=== PATIENT | female | born 1960 | race Caucasian/White ===

== ENCOUNTER 2017-01-11 20:42 | Inpatient (IN) | payer OTHER ==
[~2017-01-11] VITALS: Ht 165.1 cm; Wt 91.0 kg
[~2017-01-11 20:42] MED LIST: METH10TA2 PO; OXYC30TA PO
[2017-01-12 00:12] VITALS: Ht 165.1 cm; Wt 91.0 kg
[2017-01-12 00:17] VITALS: BP 129/73; PULSE 68; RESP 20
[2017-01-12] MEDS ORDERED: LYRI100 PO (00:53)
[2017-01-12] MEDS ORDERED: ZOLPIDEM 5 MG TAB PO PRN (01:00)
[2017-01-12] MEDS ORDERED: ACETAMINOPHEN 325 MG TAB PO PRN (01:00)
[2017-01-12] MEDS ORDERED: morphine 2 MG INJ IV PRN ×2 (01:00→03:00)
[2017-01-12] MEDS ORDERED: VANCOMYCIN IV PER PHARMACY XX SCH (01:00)
[2017-01-12 02:00] VITALS: BP 122/67; RESP 20
[2017-01-12] MEDS ORDERED: VANCOMYCIN 1.75 GM in NS 500 ML IVPB ONE (02:00)
[2017-01-12] MEDS: PIPER-TAZO 3.375 GM IV (PMX) 100 ML IVPB SCH ×4 (05:24→23:28)
[2017-01-12 06:27] LABS: ADD SCAN DIFF NO
[2017-01-12 06:29] LABS: BASOPHILS % 0.3 % (0.0-2.0); EOSINOPHILS # 0.1 10^3/ul (0.0-0.5); EOSINOPHILS % 1.7 % (0.0-7.0); HEMATOCRIT 33.8 % (37.0-47.0); HEMOGLOBIN 11.1 g/dl (12.0-16.0); LYMPHOCYTES # 2.3 10^3/ul (0.8-2.9); LYMPHOCYTES % 35.2 % (15.0-51.0); MEAN CORPUSCULAR HEMOGLOBIN 28.6 pg (29.0-33.0); MEAN CORPUSCULAR HGB CONC 32.8 g/dl (32.0-37.0); MEAN CORPUSCULAR VOLUME 87.1 fl (82.0-101.0); MEAN PLATELET VOLUME 11.6 fl (7.4-10.4); MONOCYTE # 0.4 10^3/ul (0.3-0.9); MONOCYTES % 6.1 % (0.0-11.0); NEUTROPHIL # 3.7 10^3/ul (1.6-7.5); NEUTROPHILS % 56.5 % (39.0-77.0); PLATELET COUNT 195 10^3/UL (140-415); RED BLOOD COUNT 3.88 10^6/ul (4.20-5.40); RED CELL DISTRIBUTION WIDTH 13.4 % (11.5-14.5); WHITE BLOOD COUNT 6.6 10^3/ul (4.8-10.8)
[2017-01-12 07:15] LABS: ALBUMIN 3.6 g/dl (3.3-4.9); ALBUMIN/GLOBULIN RATIO 1.38; BILIRUBIN,INDIRECT 0.1 mg/dl (0-1.1); BILIRUBIN,TOTAL 0.1 mg/dl (0.2-1.3); CALCIUM 8.7 mg/dl (8.4-10.2); CREATININE 0.51 mg/dl (0.44-1.00); TOTAL PROTEIN 6.2 g/dl (6.1-8.1)
[2017-01-12 08:07] VITALS: BP 108/58; RESP 18
[2017-01-12] MEDS: oxyCODONE 15 MG TAB PO SCH ×2 (09:04→13:30)
[2017-01-12] MEDS: PREGABALIN 25 MG CAP PO SCH (09:04)
[2017-01-12] MEDS: ENOXAPARIN 40 MG/0.4 ML SYG SC SCH (09:31)
[2017-01-12] MEDS: VANCOMYCIN 1 GM in NS 250 ML IVPB SCH (13:31)
--- NOTE | 2017-01-12 13:36 | HP ---
Date/Time of Note Date/Time of Note DATE: 01/12/17 TIME: 12:15 Assessment/Plan VTE Prophylaxis VTE Prophylaxis Intervention: other Lines/Catheters [facility] Saline Lock Urinary Cath still in place: No Assessment/Plan Assessment/Plan -Cellulitis of left lower extremity -We will also get Doppler left lower extremity to rule out any DVT -Vanco per pharmacy -Zosyn -We will get an ID consult, Dr. Shelton notified -We will get an podiatry consult, Dr. Darlin Lazar notified -Pain control with Roxicodone -Wound care consult -Dietary consult -Elevate left lower extremity all times -Chronic left ankle wound -History of paraplegia -History of back surgery -Status post decub debridement -Status post breast implants-implants have been removed as per patient -Lovenox for DVT prophylax -Protonix for GI Proflex Further plan of care depends on patient's clinical course. Discussed with Dr. Donaldson, staff, patient. HPI/ROS Admit Date/Time Admit Date/Time Jan 11, 2017 at 23:54 Hx of Present Illness The patient Amarilis Durán is a 56-year-old female patient with past medical history of paraplegia,, status post back surgery, decub debridement, status post breast implant is admitted to [facility] patient was seen in [facility] but was transferred to [facility] for insurance issues. Patient was admitted with fever and chills patient reported having an area of erythema and blister on her lateral area of left ankle. Patient also stated that she has a same problem in the past as well. No other complaints were mentioned. During assessment patient is alert and awake, follows commands denies any chest pain, shortness of breath, fever, chills,. Headache, palpitations, focal weakness and numbness, abdominal pain, nausea vomiting. Patient denies any fall or injury. Review of systems-all systems are reviewed and abnormalities mentioned as above. Patient is admitted under Dr. Donaldson on MedSur floor. Vanco, Zosyn and IV fluids were given in the ER Home medications #1 oxycodone HCL 60 mg p.o. 4 times daily #2 methadone HCL 10 mg p.o. 4 times daily #3 pregabalin 100 mg p.o. daily Allergies-no known drug allergies ROS Respiratory: no complaints Cardiovascular: no complaints Gastrointestinal: no complaints Musculoskeletal: other Skin: erythema (x) PMH/Family/Social Past Medical History -History of paraplegia Past Surgical History -History of back surgery -Status post decub debridement -Status post breast implants insertion and status post removal Social History Alcohol Use: none Smoking Status: Never smoker Drug Use: none, other Exam/Review of Systems Vital Signs Vitals Vital Signs Date Time Temp Pulse Resp B/P Pulse Ox O2 Delivery O2 Flow Rate FiO2 01/12/17 08:07 97.9 77 18 108/58 98 01/12/17 00:17 Room Air Intake and Output 01/11/17 01/11/17 01/12/17 15:00 23:00 07:00 Intake Total 950 ml Balance 950 ml Exam Constitutional: alert, oriented, well developed Respiratory: clear to auscultation, normal air movement Cardiovascular: nl pulses, regular rate and rhythm Gastrointestinal: non-tender, soft Musculoskeletal: other Extremities: edema, other (Area of erythema, warmth, swelling over the left lateral malleolus of left ankle. Skin/wound breakdown noted. No discharge noted at present. Per patient she popped up the blister herself. As well as skin discoloration noted) Neurological: nl mental status, nl speech, other (Paraplegic) Skin: other Labs Result Diagram: 01/12/1730 01/12/17 0532 Medications Medications Current Medications Piperacillin Sod/ Tazobactam Sod (Zosyn 3.375gm/ 100 ml (Pmx)) 100 ml @ 200 mls /hr Q6 IVPB Last administered on 01/12/17 05:24; Admin Dose 200 MLS/HR; Start 01/12/17 at 06:00 Acetaminophen (Tylenol Tab) 650 mg Q6H PRN PO PAIN AND OR ELEVATED TEMP; Start 01/12/17 at 01:00 Enoxaparin Sodium (Lovenox) 40 mg DAILY SC Last administered on 01/12/17 09:31 ; Admin Dose 40 MG; Start 01/12/17 at 09:00 Zolpidem Tartrate (Ambien) 5 mg HS PRN PO INSOMNIA; Start 01/12/17 at 01:00 Oxycodone HCl (Roxicodone) 60 mg TID PO Last administered on 01/12/17 09:04; Admin Dose 60 MG; Start 01/12/17 at 09:00 Pregabalin (Lyrica) 100 mg DAILY PO Last administered on 01/12/17 09:04; Admin Dose 100 MG; Start 01/12/17 at 09:00 Morphine Sulfate 4 mg 4 mg Q2H PRN IV pain Last administered on 01/12/17 02:49 ; Admin Dose 4 MG; Start 01/12/17 at 03:00 Vancomycin HCl (Vancocin) 250 ml @ 125 mls/hr Q12H IVPB ; Start 01/12/17 at 13: 00 Miscellaneous Information (*Rx Drug Level Order Reminder*) VANCOMYCIN TROUGH AT 1200 ONCE ONCE XX ; Start 01/13/17 at 12:00; Stop 01/13/17 at 12:01 Procedures Procedures 1. Left ankle x-ray series [id number] was taken at [facility] - an old healed distal tibial fracture -Fusion of the distal tibia fibular syndesmosis -Soft tissue swelling with no acute fracture 2. EKG was done and reviewed hospital that shows normal ECG, normal sinus rhythm TITUS DUNCAN Jan 12, 2017 12:40
--- NOTE | 2017-01-12 14:34 | RADRPT ---
PROCEDURE: US left lower extremity veins. CLINICAL INDICATION: Left leg pain and swelling. TECHNIQUE: Multiple longitudinal and transverse images of the left lower extremity veins were obta ined with robles scale and color Doppler imaging. The common femoral vein, femoral vein, and popliteal vein were evaluated. 2D grayscale measurements with compression sonography, pulsed Doppler, color D oppler, and pulsed Doppler with augmentation. COMPARISON: No prior studies are available for comparison. FINDINGS: The left common femoral, femoral and popliteal veins are normally compressible throughout. Color fl ow demonstrates normal filling of the vessels. Normal waveforms are visualized and there is normal response to augmentation. IMPRESSION: 1. No evidence of deep vein thrombosis involving the left lower extremity. RPTAT: QQ .Matthieu Aguilar MD, MD Date Time Electronically viewed and signed by .Matthieu Aguilar MD, on 01/12/2017 14:34 .R/
[2017-01-12 15:26] VITALS: BP 141/82; RESP 18
--- NOTE | 2017-01-12 15:31 | CONS ---
Date/Time of Note Date/Time of Note DATE: 01/12/17 TIME: 15:27 Assessment/Plan Assessment/Plan Chief Complaint/Hosp Course 1. Lower extremity cellulitis 2. paraplegia 3. back surgery 4. multiple chronic medical problems R: cont. current abx cxs procalc lactic acid will follow with you Problems: Consultation Date/Type/Reason Admit Date/Time Jan 11, 2017 at 23:54 Date of Consultation: Jan 12, 2017 Type of Consultation: id Reason for Consultation abx recs; cellulitis Hx of Present Illness Mrs Durán is a 56 yo female with hx of paraplegia, decubs s/p debridement, s/ p breast implants admitted with cellulitis of left lower extremity. She as been placed on empiric Vanco/Zosyn. Respiratory: no complaints Cardiovascular: no complaints Gastrointestinal: no complaints Musculoskeletal: other Skin: erythema (x) Social History Alcohol Use: none Smoking Status: Never smoker Drug Use: none, other Exam/Review of Systems Vital Signs Vitals Vital Signs Date Time Temp Pulse Resp B/P Pulse Ox O2 Delivery O2 Flow Rate FiO2 01/12/17 08:07 97.9 77 18 108/58 98 01/12/17 00:17 Room Air Intake and Output 01/11/17 01/11/17 01/12/17 15:00 23:00 07:00 Intake Total 950 ml Balance 950 ml Exam Eyes: PERRL ENMT: nl nasal mucosa & septum Results Result Diagram: 01/12/17 0530 01/12/17 0532 Results 24 hrs Laboratory Tests Test 01/12/17 05:30 01/12/17 05:32 White Blood Count 6.6 Red Blood Count 3.88 L Hemoglobin 11.1 L Hematocrit 33.8 L Mean Corpuscular Volume 87.1 Mean Corpuscular Hemoglobin 28.6 L Mean Corpuscular Hemoglobin Concent 32.8 Red Cell Distribution Width 13.4 Platelet Count 195 Mean Platelet Volume 11.6 H Neutrophils % 56.5 Lymphocytes % 35.2 Monocytes % 6.1 Eosinophils % 1.7 Basophils % 0.3 Nucleated Red Blood Cells % 0.0 Neutrophils # 3.7 Lymphocytes # 2.3 Monocytes # 0.4 Eosinophils # 0.1 Basophils # 0.0 Nucleated Red Blood Cells # 0.0 Sodium Level 145 H Potassium Level 4.0 Chloride Level 106 Carbon Dioxide Level 26 Anion Gap 17 H Blood Urea Nitrogen 11 Creatinine 0.51 Glucose Level 96 Calcium Level 8.7 Total Bilirubin 0.1 L Direct Bilirubin 0.00 Indirect Bilirubin 0.1 Aspartate Amino Transf (AST/SGOT) 19 Alanine Aminotransferase (ALT/SGPT) 27 Alkaline Phosphatase 81 Total Protein 6.2 Albumin 3.6 Globulin 2.60 Albumin/Globulin Ratio 1.38 Medications Medications Current Medications Piperacillin Sod/ Tazobactam Sod (Zosyn 3.375gm/ 100 ml (Pmx)) 100 ml @ 200 mls /hr Q6 IVPB Last administered on 01/12/17 12:52; Admin Dose 200 MLS/HR; Start 01/12/17 at 06:00 Acetaminophen (Tylenol Tab) 650 mg Q6H PRN PO PAIN AND OR ELEVATED TEMP; Start 01/12/17 at 01:00 Enoxaparin Sodium (Lovenox) 40 mg DAILY SC Last administered on 01/12/17 09:31 ; Admin Dose 40 MG; Start 01/12/17 at 09:00 Zolpidem Tartrate (Ambien) 5 mg HS PRN PO INSOMNIA; Start 01/12/17 at 01:00 Oxycodone HCl (Roxicodone) 60 mg TID PO Last administered on 01/12/17 13:30; Admin Dose 60 MG; Start 01/12/17 at 09:00 Pregabalin (Lyrica) 100 mg DAILY PO Last administered on 01/12/17 09:04; Admin Dose 100 MG; Start 01/12/17 at 09:00 Morphine Sulfate 4 mg 4 mg Q2H PRN IV pain Last administered on 01/12/17 02:49 ; Admin Dose 4 MG; Start 01/12/17 at 03:00 Vancomycin HCl (Vancocin) 250 ml @ 125 mls/hr Q12H IVPB Last administered on 13:31; Admin Dose 125 MLS/HR; Start 01/12/17 at 13:00 Miscellaneous Information (*Rx Drug Level Order Reminder*) VANCOMYCIN TROUGH AT 1200 ONCE ONCE XX ; Start 01/13/17 at 12:00; Stop 01/13/17 at 12:01 Pantoprazole (Protonix Tab) 40 mg DAILY@06 PO ; Start 01/13/17 at 06:00 SAHARA ALDRICH MD Jan 12, 2017 15:31
[2017-01-12 19:59] VITALS: BP 134/80; RESP 18
[2017-01-12] MEDS ORDERED: oxyCODONE 15 MG TAB PO SCH (20:00)
[2017-01-12] MEDS: METHADONE 10 MG TAB PO SCH (23:00)
[2017-01-13] MEDS: ALPRAZOLAM 0.25 MG TAB PO PRN (00:40)
[2017-01-13] MEDS: VANCOMYCIN 1 GM in NS 250 ML IVPB SCH ×2 (00:40→14:30)
[2017-01-13 02:00] VITALS: BP 104/58; RESP 18
[2017-01-13] MEDS: PIPER-TAZO 3.375 GM IV (PMX) 100 ML IVPB SCH ×4 (05:50→23:34)
[2017-01-13] MEDS: PANTOPRAZOLE (EC) 40 MG TAB PO SCH (05:52)
[2017-01-13] MEDS: METHADONE 10 MG TAB PO SCH ×2 (06:04→23:34)
[2017-01-13 07:24] LABS: ADD SCAN DIFF NO
[2017-01-13 07:31] LABS: BASOPHILS % 0.7 % (0.0-2.0); EOSINOPHILS # 0.2 10^3/ul (0.0-0.5); EOSINOPHILS % 3.6 % (0.0-7.0); HEMOGLOBIN 10.7 g/dl (12.0-16.0); LYMPHOCYTES # 1.6 10^3/ul (0.8-2.9); LYMPHOCYTES % 35.1 % (15.0-51.0); MEAN CORPUSCULAR HEMOGLOBIN 28.6 pg (29.0-33.0); MEAN CORPUSCULAR HGB CONC 32.4 g/dl (32.0-37.0); MEAN CORPUSCULAR VOLUME 88.2 fl (82.0-101.0); MEAN PLATELET VOLUME 11.9 fl (7.4-10.4); MONOCYTE # 0.3 10^3/ul (0.3-0.9); MONOCYTES % 7.2 % (0.0-11.0); NEUTROPHIL # 2.4 10^3/ul (1.6-7.5); NEUTROPHILS % 53.2 % (39.0-77.0); PLATELET COUNT 166 10^3/UL (140-415); RED BLOOD COUNT 3.74 10^6/ul (4.20-5.40); RED CELL DISTRIBUTION WIDTH 13.5 % (11.5-14.5); WHITE BLOOD COUNT 4.4 10^3/ul (4.8-10.8)
[2017-01-13 07:41] LABS: CALCIUM 8.6 mg/dl (8.4-10.2); CREATININE 0.56 mg/dl (0.44-1.00); POTASSIUM 4.1 mmol/L (3.5-5.1)
[2017-01-13 07:56] VITALS: BP 158/78; RESP 18
[2017-01-13] MEDS: PREGABALIN 25 MG CAP PO SCH (09:59)
[2017-01-13] MEDS: ENOXAPARIN 40 MG/0.4 ML SYG SC SCH (10:06)
[2017-01-13] MEDS: oxyCODONE 15 MG TAB PO SCH ×3 (10:18→18:39)
--- NOTE | 2017-01-13 12:31 | PN ---
Date/Time of Note Date/Time of Note DATE: 01/13/17 TIME: 12:27 Assessment/Plan VTE Prophylaxis VTE Prophylaxis Intervention: LMWH Lines/Catheters IV Catheter Type (from Nrs): Saline Lock Urinary Cath still in place: No Assessment/Plan Assessment/Plan -Cellulitis of left lower extremity -Doppler left lower extremity to rule out any DVT-negative -Vanco per pharmacy -Zosyn -Per ID consult, Dr. Shelton -Per podiatry consult, Dr. Darlin Lazar -Pain control with Roxicodone -Wound care consult -Dietary consult -Elevate left lower extremity all times -Chronic left ankle wound -History of paraplegia -History of back surgery -Status post decub debridement -Status post breast implants-implants have been removed as per patient -Lovenox for DVT prophylax -Protonix for GI Proflex Further plan of care depends on patient's clinical course. Discussed with Dr. Donaldson, staff, patient. Subjective 24 Hr Interval Summary Free Text/Dictation Sitting up in the bed, complaining of left ankle wound, afebrile, left lower extremity negative for DVT, ID follows discussed with the staff no new events reported overnight. Exam/Review of Systems Vital Signs Vitals Vital Signs Date Time Temp Pulse Resp B/P Pulse Ox O2 Delivery O2 Flow Rate FiO2 01/13/17 07:56 98.6 70 18 158/78 98 01/12/17 00:17 Room Air Intake and Output 01/12/17 01/12/17 01/13/17 14:59 22:59 06:59 Intake Total 350 ml 1660 ml 800 ml Balance 350 ml 1660 ml 800 ml Exam Constitutional: alert, oriented, well developed Psych: nl mood/affect Respiratory: clear to auscultation, normal air movement Cardiovascular: nl pulses, regular rate and rhythm Gastrointestinal: non-tender, soft Musculoskeletal: other (Left ankle wound) Extremities: normal pulses Neurological: nl mental status, nl speech Skin: other (Left ankle wound) Results Result Diagram: 01/13/1725 01/13/17 0525 Results 24 hrs Laboratory Tests Test 01/13/17 05:25 White Blood Count 4.4 #L Red Blood Count 3.74 L Hemoglobin 10.7 L Hematocrit 33.0 L Mean Corpuscular Volume 88.2 Mean Corpuscular Hemoglobin 28.6 L Mean Corpuscular Hemoglobin Concent 32.4 Red Cell Distribution Width 13.5 Platelet Count 166 Mean Platelet Volume 11.9 H Neutrophils % 53.2 Lymphocytes % 35.1 Monocytes % 7.2 Eosinophils % 3.6 Basophils % 0.7 Nucleated Red Blood Cells % 0.0 Neutrophils # 2.4 Lymphocytes # 1.6 Monocytes # 0.3 Eosinophils # 0.2 Basophils # 0.0 Nucleated Red Blood Cells # 0.0 Sodium Level 139 Potassium Level 4.1 Chloride Level 106 Carbon Dioxide Level 26 Anion Gap 11 Blood Urea Nitrogen 8 Creatinine 0.56 Glucose Level 85 Calcium Level 8.6 Medications Medications Current Medications Piperacillin Sod/ Tazobactam Sod (Zosyn 3.375gm/ 100 ml (Pmx)) 100 ml @ 200 mls /hr Q6 IVPB Last administered on 01/13/17 05:50; Admin Dose 200 MLS/HR; Start 01/12/17 at 06:00 Acetaminophen (Tylenol Tab) 650 mg Q6H PRN PO PAIN AND OR ELEVATED TEMP; Start 01/12/17 at 01:00 Enoxaparin Sodium (Lovenox) 40 mg DAILY SC Last administered on 01/13/17 10:06 ; Admin Dose 40 MG; Start 01/12/17 at 09:00 Zolpidem Tartrate (Ambien) 5 mg HS PRN PO INSOMNIA; Start 01/12/17 at 01:00 Pregabalin (Lyrica) 100 mg DAILY PO Last administered on 01/13/17 09:59; Admin Dose 100 MG; Start 01/12/17 at 09:00 Morphine Sulfate 4 mg 4 mg Q2H PRN IV pain Last administered on 01/12/17 02:49 ; Admin Dose 4 MG; Start 01/12/17 at 03:00 Vancomycin HCl (Vancocin) 250 ml @ 125 mls/hr Q12H IVPB Last administered on 00:40; Admin Dose 125 MLS/HR; Start 01/12/17 at 13:00 Pantoprazole (Protonix Tab) 40 mg DAILY@06 PO ; Start 01/13/17 at 06:00 Alprazolam (Xanax) 0.5 mg HS PRN PO ANXIETY Last administered on 01/13/17 00: 40; Admin Dose 0.25 MG; Start 01/12/17 at 18:00 Oxycodone HCl (Roxicodone) 60 mg 09,13 PO Last administered on 01/13/17 10:18 ; Admin Dose 60 MG; Start 01/13/17 at 09:00 Oxycodone HCl (Roxicodone) 90 mg HS PO ; Start 01/12/17 at 20:00 Methadone HCl (Methadone) 20 mg BID@07,23 PO Last administered on 01/13/17 06: 04; Admin Dose 20 MG; Start 01/12/17 at 23:00 TITUS DUNCAN Jan 13, 2017 12:30
--- NOTE | 2017-01-13 13:01 | CONS ---
Date/Time of Note Date/Time of Note DATE: 01/13/17 TIME: 13:00 Assessment/Plan Assessment/Plan Chief Complaint/Hosp Course 1. Lower extremity cellulitis 2. paraplegia 3. back surgery 4. multiple chronic medical problems R: cont. current abx cxs--wound ordered (d/w nursing) procalc lactic acid will follow with you Problems: Consultation Date/Type/Reason Admit Date/Time Jan 11, 2017 at 23:54 Initial Consult Date 01/12/17 Type of Consultation: id Exam/Review of Systems Vital Signs Vitals Vital Signs Date Time Temp Pulse Resp B/P Pulse Ox O2 Delivery O2 Flow Rate FiO2 01/13/17 07:56 98.6 70 18 158/78 98 01/12/17 00:17 Room Air Intake and Output 01/12/17 01/12/17 01/13/17 15:00 23:00 07:00 Intake Total 350 ml 1660 ml 800 ml Balance 350 ml 1660 ml 800 ml Exam Constitutional: alert, oriented, well developed Psych: nl mood/affect, no complaints Head: atraumatic, normocephalic Eyes: EOMI, PERRL, nl conjunctiva, nl lids, nl sclera Extremities: other (left ankle 2x3 cm wound with mild erythema and drainage) Results Result Diagram: 01/13/17 0525 01/13/17 0525 Results 24 hrs Laboratory Tests Test 01/13/17 05:25 White Blood Count 4.4 #L Red Blood Count 3.74 L Hemoglobin 10.7 L Hematocrit 33.0 L Mean Corpuscular Volume 88.2 Mean Corpuscular Hemoglobin 28.6 L Mean Corpuscular Hemoglobin Concent 32.4 Red Cell Distribution Width 13.5 Platelet Count 166 Mean Platelet Volume 11.9 H Neutrophils % 53.2 Lymphocytes % 35.1 Monocytes % 7.2 Eosinophils % 3.6 Basophils % 0.7 Nucleated Red Blood Cells % 0.0 Neutrophils # 2.4 Lymphocytes # 1.6 Monocytes # 0.3 Eosinophils # 0.2 Basophils # 0.0 Nucleated Red Blood Cells # 0.0 Sodium Level 139 Potassium Level 4.1 Chloride Level 106 Carbon Dioxide Level 26 Anion Gap 11 Blood Urea Nitrogen 8 Creatinine 0.56 Glucose Level 85 Calcium Level 8.6 Medications Medications Current Medications Piperacillin Sod/ Tazobactam Sod (Zosyn 3.375gm/ 100 ml (Pmx)) 100 ml @ 200 mls /hr Q6 IVPB Last administered on 01/13/17 05:50; Admin Dose 200 MLS/HR; Start 01/12/17 at 06:00 Acetaminophen (Tylenol Tab) 650 mg Q6H PRN PO PAIN AND OR ELEVATED TEMP; Start 01/12/17 at 01:00 Enoxaparin Sodium (Lovenox) 40 mg DAILY SC Last administered on 01/13/17 10:06 ; Admin Dose 40 MG; Start 01/12/17 at 09:00 Zolpidem Tartrate (Ambien) 5 mg HS PRN PO INSOMNIA; Start 01/12/17 at 01:00 Pregabalin (Lyrica) 100 mg DAILY PO Last administered on 01/13/17 09:59; Admin Dose 100 MG; Start 01/12/17 at 09:00 Morphine Sulfate 4 mg 4 mg Q2H PRN IV pain Last administered on 01/12/17 02:49 ; Admin Dose 4 MG; Start 01/12/17 at 03:00 Vancomycin HCl (Vancocin) 250 ml @ 125 mls/hr Q12H IVPB Last administered on 00:40; Admin Dose 125 MLS/HR; Start 01/12/17 at 13:00 Pantoprazole (Protonix Tab) 40 mg DAILY@06 PO ; Start 01/13/17 at 06:00 Alprazolam (Xanax) 0.5 mg HS PRN PO ANXIETY Last administered on 01/13/17 00: 40; Admin Dose 0.25 MG; Start 01/12/17 at 18:00 Oxycodone HCl (Roxicodone) 60 mg 09,13 PO Last administered on 01/13/17 10:18 ; Admin Dose 60 MG; Start 01/13/17 at 09:00 Oxycodone HCl (Roxicodone) 90 mg HS PO ; Start 01/12/17 at 20:00 Methadone HCl (Methadone) 20 mg BID@07,23 PO Last administered on 01/13/17 06: 04; Admin Dose 20 MG; Start 01/12/17 at 23:00 SAHARA ALDRICH MD Jan 13, 2017 13:01
[2017-01-13 14:22] VITALS: BP 127/77; RESP 70
[2017-01-13 20:48] VITALS: BP 117/58; RESP 20
[2017-01-14] MEDS: VANCOMYCIN 1 GM in NS 250 ML IVPB SCH ×2 (00:28→13:09)
[2017-01-14] MEDS: ALPRAZOLAM 0.25 MG TAB PO PRN ×2 (00:51→23:10)
[2017-01-14 03:10] VITALS: BP 115/62; RESP 18
[2017-01-14 05:20] LABS: ADD SCAN DIFF NO
[2017-01-14 05:28] LABS: BASOPHILS % 0.6 % (0.0-2.0); EOSINOPHILS # 0.2 10^3/ul (0.0-0.5); EOSINOPHILS % 3.2 % (0.0-7.0); HEMATOCRIT 32.3 % (37.0-47.0); HEMOGLOBIN 10.6 g/dl (12.0-16.0); LYMPHOCYTES # 1.9 10^3/ul (0.8-2.9); LYMPHOCYTES % 39.7 % (15.0-51.0); MEAN CORPUSCULAR HEMOGLOBIN 28.6 pg (29.0-33.0); MEAN CORPUSCULAR HGB CONC 32.8 g/dl (32.0-37.0); MEAN CORPUSCULAR VOLUME 87.1 fl (82.0-101.0); MEAN PLATELET VOLUME 11.8 fl (7.4-10.4); MONOCYTE # 0.4 10^3/ul (0.3-0.9); MONOCYTES % 8.2 % (0.0-11.0); NEUTROPHIL # 2.3 10^3/ul (1.6-7.5); NEUTROPHILS % 48.1 % (39.0-77.0); PLATELET COUNT 182 10^3/UL (140-415); RED BLOOD COUNT 3.71 10^6/ul (4.20-5.40); RED CELL DISTRIBUTION WIDTH 13.2 % (11.5-14.5); WHITE BLOOD COUNT 4.8 10^3/ul (4.8-10.8)
[2017-01-14] MEDS: PIPER-TAZO 3.375 GM IV (PMX) 100 ML IVPB SCH ×4 (05:55→23:06)
[2017-01-14] MEDS: PANTOPRAZOLE (EC) 40 MG TAB PO SCH (06:00)
[2017-01-14 06:09] LABS: CALCIUM 8.7 mg/dl (8.4-10.2); CREATININE 0.65 mg/dl (0.44-1.00)
--- NOTE | 2017-01-14 06:52 | HP ---
DATE OF ADMISSION: 01/11/2017 Vascular Surgery History and Physical. Dear Doctors: Mrs. Durán is a 56-year-old female with history of paraplegia secondary to an injury from her roof falling on her back and she has been paralyzed ever since. The patient was brought to [facility] secondary to development of a left lower extremity lateral malleolar ulcer and swelling and redness. The patient mentioned that this has developed over the past few days and Vascular Surgery consultation was obtained for evaluation of lower extremity perfusion. At the moment patient denies shortness of breath, chest pain, nausea, vomiting, fever or chills. Patient denies any lower extremity rest pain. She does have a some discomfort of the lower leg but patient cannot describe the quality of it. REVIEW OF SYSTEMS: Fourteen point review performed and negative except as mentioned in the HPI. PAST MEDICAL HISTORY: 1. Paraplegia secondary to an accident. 2. Morbidly obese with BMI of 33.4. SURGICAL HISTORY: Back surgery, decubitus ulcer debridements and history of breast implants and removal. SOCIAL HISTORY: Denies current tobacco, alcohol, or illicit drug use. FAMILY HISTORY: Positive for hypertension. PHYSICAL EXAMINATION: GENERAL: Alert, oriented x3. No apparent distress. HEENT: Normocephalic, atraumatic. PERRLA. EOMI. Mucosa moist. NECK: Supple. No carotid bruit. LUNGS: Clear to auscultation bilaterally. No crackles. CARDIOVASCULAR: S1, S2 present. No murmurs. ABDOMEN: Soft, nontender, nondistended. Bowel sounds positive. Truncal obesity. EXTREMITIES: Right lower extremity, palpable femoral pulse. Palpable pedal pulse. Motor and sensory: The patient is paraplegic. Capillary refill 2 seconds. Left lower extremity, palpable femoral pulse. Palpable pedal pulse. Motor and sensory-the patient is paraplegic. Capillary refill 2 seconds, left lateral malleolar necrotic ulcer that seems to be superficial with eschar and surrounding erythema. No purulent drainage identified. ASSESSMENT AND PLAN: Bilateral lower extremity atherosclerosis with left lower extremity ulcer: It seems that the patient has developed what may be a decubitus ulcer as a result of either trauma or extended period of pressure applied to that area. As the patient has palpable pulses, concerns for flow-limiting perfusion to the lower leg is less likely. Would recommend for the patient to undergo debridement with our podiatry colleagues and is cleared from a vascular surgery standpoint. We will plan to obtain lower extremity noninvasive vascular studies to have as a baseline for the patient. Optimize vascular status (nutrition, sugar control, antiplatelets). Discussed findings, plan and management with the patient. She understands. Thank you for allowing us to partake in the care of your patient. Please call with any questions. Dictated By: Maksim Garcia MD /oh/kelly /Document#: [id number]
[2017-01-14 07:17] VITALS: BP 106/58; RESP 18
[2017-01-14] MEDS: METHADONE 10 MG TAB PO SCH ×2 (07:23→23:00)
[2017-01-14] MEDS: PREGABALIN 25 MG CAP PO SCH (08:18)
[2017-01-14] MEDS: oxyCODONE 15 MG TAB PO SCH ×3 (08:18→17:29)
[2017-01-14] MEDS: ENOXAPARIN 40 MG/0.4 ML SYG SC SCH (08:27)
--- NOTE | 2017-01-14 11:08 | PN ---
Date/Time of Note Date/Time of Note DATE: 01/14/17 TIME: 10:56 Assessment/Plan VTE Prophylaxis VTE Prophylaxis Intervention: SCD's Lines/Catheters IV Catheter Type (from [facility]): Saline Lock Urinary Cath still in place: No Assessment/Plan Chief Complaint/Hosp Course Patient denies any fever chills, remains hemodynamically stable, wants to go home. Problems: Assessment/Plan -Left lower extremity ulcer with possible cellulitis, Dr. Shelton is following an infection disease consultation. Dr. Lazar is following in podiatry consultation. -Bilateral lower extremity atherosclerosis, Dr. Garcia is following in vascular surgery consultation. -Paraplegia secondary to spinal cord injury -Morbid obesity with BMI of 33.4 Further recommendations based on clinical course. Plan of care discussed with Dr. Donaldson. Exam/Review of Systems Vital Signs Vitals Vital Signs Date Time Temp Pulse Resp B/P Pulse Ox O2 Delivery O2 Flow Rate FiO2 01/14/17 07:17 98.4 67 18 106/58 96 01/12/17 00:17 Room Air Intake and Output 01/13/17 01/13/17 01/14/17 15:00 23:00 07:00 Intake Total 100 ml 1210 ml 950 ml Balance 100 ml 1210 ml 950 ml Exam Constitutional: alert, oriented Psych: no complaints Neck: supple Respiratory: normal air movement Cardiovascular: nl pulses Gastrointestinal: non-tender, soft Musculoskeletal: muscle weakness Extremities: other (Left lower extremity ulcer) Neurological: other (Paraplegia) Results Result Diagram: 01/14/17 0500 01/14/17 0445 Results 24 hrs Laboratory Tests Test 01/13/17 12:55 01/14/17 04:45 01/14/17 05:00 Vancomycin Level Trough 11.6 Sodium Level 143 Potassium Level 4.0 Chloride Level 102 Carbon Dioxide Level 30 Anion Gap 15 Blood Urea Nitrogen 12 Creatinine 0.65 Glucose Level 95 Calcium Level 8.7 White Blood Count 4.8 Red Blood Count 3.71 L Hemoglobin 10.6 L Hematocrit 32.3 L Mean Corpuscular Volume 87.1 Mean Corpuscular Hemoglobin 28.6 L Mean Corpuscular Hemoglobin Concent 32.8 Red Cell Distribution Width 13.2 Platelet Count 182 Mean Platelet Volume 11.8 H Neutrophils % 48.1 Lymphocytes % 39.7 Monocytes % 8.2 Eosinophils % 3.2 Basophils % 0.6 Nucleated Red Blood Cells % 0.0 Neutrophils # 2.3 Lymphocytes # 1.9 Monocytes # 0.4 Eosinophils # 0.2 Basophils # 0.0 Nucleated Red Blood Cells # 0.0 Medications Medications Current Medications Piperacillin Sod/ Tazobactam Sod (Zosyn 3.375gm/ 100 ml (Pmx)) 100 ml @ 200 mls /hr Q6 IVPB Last administered on 01/14/17 05:55; Admin Dose 200 MLS/HR; Start 01/12/17 at 06:00 Acetaminophen (Tylenol Tab) 650 mg Q6H PRN PO PAIN AND OR ELEVATED TEMP; Start 01/12/17 at 01:00 Enoxaparin Sodium (Lovenox) 40 mg DAILY SC Last administered on 01/14/17 08:27 ; Admin Dose 40 MG; Start 01/12/17 at 09:00 Zolpidem Tartrate (Ambien) 5 mg HS PRN PO INSOMNIA; Start 01/12/17 at 01:00 Pregabalin (Lyrica) 100 mg DAILY PO Last administered on 01/14/17 08:18; Admin Dose 100 MG; Start 01/12/17 at 09:00 Morphine Sulfate 4 mg 4 mg Q2H PRN IV pain Last administered on 01/12/17 02:49 ; Admin Dose 4 MG; Start 01/12/17 at 03:00 Vancomycin HCl (Vancocin) 250 ml @ 125 mls/hr Q12H IVPB Last administered on 00:28; Admin Dose 125 MLS/HR; Start 01/12/17 at 13:00 Pantoprazole (Protonix Tab) 40 mg DAILY@06 PO ; Start 01/13/17 at 06:00 Alprazolam (Xanax) 0.5 mg HS PRN PO ANXIETY Last administered on 01/14/17 00: 51; Admin Dose 0.25 MG; Start 01/12/17 at 18:00 Oxycodone HCl (Roxicodone) 60 mg ,13 PO Last administered on 01/14/17 08:18 ; Admin Dose 60 MG; Start 01/13/17 at 09:00 Methadone HCl (Methadone) 20 mg BID@,23 PO Last administered on 01/14/17 07: 23; Admin Dose 20 MG; Start 01/12/17 at 23:00 Oxycodone HCl (Roxicodone) 90 mg DAILY@18 PO Last administered on 01/13/17t 18: 39; Admin Dose 90 MG; Start 01/13/17 at 18:30 TING BENITEZ Jan 14, 2017 11:06
[2017-01-14 14:13] VITALS: BP 135/73; RESP 18
--- NOTE | 2017-01-14 16:04 | RADRPT ---
PROCEDURE: US bilateral lower extremity arteries. CLINICAL INDICATION: Bilateral leg pain. Claudication that interferes significantly with the lucy ent's lifestyle bilateral lower extremity nonhealing ulcers.. TECHNIQUE: Multiple longitudinal and transverse images of the bilateral lower extremity arteries w ere obtained with robles scale, pulsed Doppler, and color Doppler imaging. COMPARISON: No prior studies are available for comparison. FINDINGS: Right DOT COMPLIANCE MANAGER:123 cm/sec PSFA:106 cm/sec MSFA:99 cm/sec DSFA:103 cm/sec POP:65 cm/sec CONVEYOR LINE BATTERY CHARGER:83 cm/sec DPA:57 cm/sec Left DOT COMPLIANCE MANAGER:119 cm/sec PSFA:112 cm/sec MSFA:112 cm/sec DSFA:102 cm/sec POP:87 cm/sec CONVEYOR LINE BATTERY CHARGER:84 cm/sec DPA:12 cm/sec The right ankle-brachial index is 1.0 and the left ankle-brachial index is 1.0. There is normal triphasic flow throughout bilaterally. IMPRESSION: 1. Mild plaque formation without evidence for hemodynamically significant stenosis or occlusion. RPTAT: QQ .Matthieu Aguilar MD, MD Date Time Electronically viewed and signed by .Matthieu Aguilar MD, MD on 01/14/2017 16:04 .R/
[2017-01-14] MEDS: COLLAGENASE 30 GM TUBE TOP SCH (17:28)
--- NOTE | 2017-01-14 19:19 | CONS ---
Date/Time of Note Date/Time of Note DATE: 01/14/17 TIME: 19:14 Assessment/Plan Assessment/Plan Chief Complaint/Hosp Course assessment/impression - infection of ulcer of L lateral malleolus and surrounding cellulitis - paraplegia after an injury in a fall - s/p back surgery - obesity recommendations - await the final results of wound culture from L ankle - continue IV vanc and pip/tazo-->then convert to PO antibiotics based on the final culture result management d/w Pt Problems: Consultation Date/Type/Reason Admit Date/Time Jan 11, 2017 at 23:54 Initial Consult Date 01/12/17 Type of Consultation: ID [id number] HR Interval Summary Constitutional: no complaints Detailed Summary Skin: skin lesions (feels that the skin lesion of L ankle has improved) Neurologic: other (paraplegic below thigh) Exam/Review of Systems Vital Signs Vitals Vital Signs Date Time Temp Pulse Resp B/P Pulse Ox O2 Delivery O2 Flow Rate FiO2 01/14/17 14:13 98.4 70 18 135/73 98 01/12/17 00:17 Room Air Intake and Output 01/13/17 01/13/17 01/14/17 15:00 23:00 07:00 Intake Total 100 ml 1210 ml 1200 ml Balance 100 ml 1210 ml 1200 ml Exam Constitutional: alert, oriented, well developed Psych: no complaints Head: atraumatic, normocephalic Eyes: nl conjunctiva, nl lids ENMT: nl external ears & nose, nl nasal mucosa & septum Neck: supple Musculoskeletal: No swelling Extremities: edema (pedal swelling) Skin: rash or lesions (decubitus ulcer of R ankle, open wound surrounded by erythema of L lateral malleolus (saw pictures from admission and today)) Results Result Diagram: 01/14/17 0500 01/14/17 0445 Results 24 hrs Laboratory Tests Test 01/14/17 04:45 01/14/17 05:00 Sodium Level 143 Potassium Level 4.0 Chloride Level 102 Carbon Dioxide Level 30 Anion Gap 15 Blood Urea Nitrogen 12 Creatinine 0.65 Glucose Level 95 Calcium Level 8.7 White Blood Count 4.8 Red Blood Count 3.71 L Hemoglobin 10.6 L Hematocrit 32.3 L Mean Corpuscular Volume 87.1 Mean Corpuscular Hemoglobin 28.6 L Mean Corpuscular Hemoglobin Concent 32.8 Red Cell Distribution Width 13.2 Platelet Count 182 Mean Platelet Volume 11.8 H Neutrophils % 48.1 Lymphocytes % 39.7 Monocytes % 8.2 Eosinophils % 3.2 Basophils % 0.6 Nucleated Red Blood Cells % 0.0 Neutrophils # 2.3 Lymphocytes # 1.9 Monocytes # 0.4 Eosinophils # 0.2 Basophils # 0.0 Nucleated Red Blood Cells # 0.0 Medications Medications Current Medications Piperacillin Sod/ Tazobactam Sod (Zosyn 3.375gm/ 100 ml (Pmx)) 100 ml @ 200 mls /hr Q6 IVPB Last administered on 01/14/17 17:28; Admin Dose 200 MLS/HR; Start 01/12/17 at 06:00 Acetaminophen (Tylenol Tab) 650 mg Q6H PRN PO PAIN AND OR ELEVATED TEMP; Start 01/12/17 at 01:00 Enoxaparin Sodium (Lovenox) 40 mg DAILY SC Last administered on 01/14/17 08:27 ; Admin Dose 40 MG; Start 01/12/17 at 09:00 Zolpidem Tartrate (Ambien) 5 mg HS PRN PO INSOMNIA; Start 01/12/17 at 01:00 Pregabalin (Lyrica) 100 mg DAILY PO Last administered on 01/14/17 08:18; Admin Dose 100 MG; Start 01/12/17 at 09:00 Morphine Sulfate 4 mg 4 mg Q2H PRN IV pain Last administered on 01/12/17 02:49 ; Admin Dose 4 MG; Start 01/12/17 at 03:00 Vancomycin HCl (Vancocin) 250 ml @ 125 mls/hr Q12H IVPB Last administered on 13:09; Admin Dose 125 MLS/HR; Start 01/12/17 at 13:00 Pantoprazole (Protonix Tab) 40 mg DAILY@06 PO ; Start 01/13/17 at 06:00 Alprazolam (Xanax) 0.5 mg HS PRN PO ANXIETY Last administered on 01/14/17 00: 51; Admin Dose 0.25 MG; Start 01/12/17 at 18:00 Oxycodone HCl (Roxicodone) 60 mg ,13 PO Last administered on 01/14/17 13:48 ; Admin Dose 60 MG; Start 01/13/17 at 09:00 Methadone HCl (Methadone) 20 mg BID@07,23 PO Last administered on 01/14/17 07: 23; Admin Dose 20 MG; Start 01/12/17 at 23:00 Oxycodone HCl (Roxicodone) 90 mg DAILY@18 PO Last administered on 01/14/17 17: 29; Admin Dose 90 MG; Start 01/13/17 at 18:30 Collagenase (Santyl) 1 applic DAILY TOP Last administered on 01/14/17 17:28; Admin Dose 1 APPLIC; Start 01/14/17 at 16:00 YARELI PLASCENCIA M.D. Jan 14, 2017 19:18
[2017-01-14 20:22] VITALS: BP 126/80; RESP 18
[2017-01-15] MEDS: VANCOMYCIN 1 GM in NS 250 ML IVPB SCH ×2 (00:10→13:48)
--- NOTE | 2017-01-15 01:19 | CONS ---
Date/Time of Note Date/Time of Note DATE: 01/14/17 Assessment/Plan Assessment/Plan Problems: (1) Open wound of left ankle (2) Morbid obesity Additional Assessment/Plan May be d/c home with follow up at [facility]. No surgery recommended for this patient. May apply Santyl ointment to the wound and change bandages daily. Thank you again for involving me in the care of this patient. If you have any questions regarding this case, please feel free to contact me at pager: or reach me at mobile: [phone]. Consultation Date/Type/Reason Admit Date/Time Jan 11, 2017 at 23:54 Date of Consultation: Jan 14, 2017 Type of Consultation: Foot and ankle surgery Reason for Consultation Evaluation of open wound of the left ankle Hx of Present Illness Thank you very much for involving me in the care of this patient. As you very well know this is a 56-year-old female patient with past medical history significant for paraplegia with history of back surgery, decubitus ulceration, status post breast implant who was admitted to [facility] from the transfer from [facility] for infection of her left ankle. Patient was admitted with fever and chills. She says that she developed a blister on the outside of the left ankle which grew in size and dried up. She says that she tried to clean the area and remove the scab. She says that today , the area is improved significantly and should no longer has redness and swelling. I was consulted for evaluation and treatment. Constitutional: no complaints, No chills, No diaphoresis, No disoriented, No febrile, No improved, No other , No poor po, No requiring IVF, No requiring O2 Eyes: No discharge, No no complaints, No other, No pain, No redness, No visual change ENT: No bleeding, No congestion, No discharge, No dysphagia, No no complaints, No other, No pain, No sore throat Respiratory: no complaints Cardiovascular: no complaints, No chest pain, No edema, No lightheadedness, No orthopenea, No other, No palpitations, No paroxysmal nocturnal dyspnea Gastrointestinal: no complaints Musculoskeletal: other Skin: skin lesions (feels that the skin lesion of L ankle has improved) Neurologic: other (paraplegic below thigh) Psychological: no complaints Past Medical History As per history of present illness. Past Surgical History As per history of present illness. Social History As per history of present illness. Alcohol Use: none Smoking Status: Never smoker Drug Use: none, other Exam/Review of Systems Vital Signs Vitals Vital Signs Date Time Temp Pulse Resp B/P Pulse Ox O2 Delivery O2 Flow Rate FiO2 01/14/17 20:22 98.3 68 18 126/80 100 01/12/17 00:17 Room Air Intake and Output 01/14/17 01/14/17 01/15/17 15:00 23:00 07:00 Intake Total 350 ml 980 ml 100 ml Balance 350 ml 980 ml 100 ml Exam Patient is morbidly obese in no acute distress laying supine in bed. Open wound present on the lateral malleolus of the left ankle. The wound has 100% red granulation tissue at the base with no drainage of pus and no bleeding. The area is not edematous and there is no erythema noted. No malodor present. No other open wound present bilateral feet. Dorsalis pedis and posterior tibial pulses weakly palpable. Sensation is absent bilateral lower extremity. Labs reviewed. Imaging reviewed. Results Result Diagram: 01/14/17 0500 01/14/17 0445 Results 24 hrs Laboratory Tests Test 01/14/17 04:45 01/14/17 05:00 Sodium Level 143 Potassium Level 4.0 Chloride Level 102 Carbon Dioxide Level 30 Anion Gap 15 Blood Urea Nitrogen 12 Creatinine 0.65 Glucose Level 95 Calcium Level 8.7 White Blood Count 4.8 Red Blood Count 3.71 L Hemoglobin 10.6 L Hematocrit 32.3 L Mean Corpuscular Volume 87.1 Mean Corpuscular Hemoglobin 28.6 L Mean Corpuscular Hemoglobin Concent 32.8 Red Cell Distribution Width 13.2 Platelet Count 182 Mean Platelet Volume 11.8 H Neutrophils % 48.1 Lymphocytes % 39.7 Monocytes % 8.2 Eosinophils % 3.2 Basophils % 0.6 Nucleated Red Blood Cells % 0.0 Neutrophils # 2.3 Lymphocytes # 1.9 Monocytes # 0.4 Eosinophils # 0.2 Basophils # 0.0 Nucleated Red Blood Cells # 0.0 Medications Medications Current Medications Piperacillin Sod/ Tazobactam Sod (Zosyn 3.375gm/ 100 ml (Pmx)) 100 ml @ 200 mls /hr Q6 IVPB Last administered on 01/14/17t 23:06; Admin Dose 200 MLS/HR; Start 01/12/17 at 06:00 Acetaminophen (Tylenol Tab) 650 mg Q6H PRN PO PAIN AND OR ELEVATED TEMP; Start 01/12/17 at 01:00 Enoxaparin Sodium (Lovenox) 40 mg DAILY SC Last administered on 01/14/17 08:27 ; Admin Dose 40 MG; Start 01/12/17 at 09:00 Zolpidem Tartrate (Ambien) 5 mg HS PRN PO INSOMNIA; Start 01/12/17 at 01:00 Pregabalin (Lyrica) 100 mg DAILY PO Last administered on 01/14/17 08:18; Admin Dose 100 MG; Start 01/12/17 at 09:00 Morphine Sulfate 4 mg 4 mg Q2H PRN IV pain Last administered on 01/12/17 02:49 ; Admin Dose 4 MG; Start 01/12/17 at 03:00 Vancomycin HCl (Vancocin) 250 ml @ 125 mls/hr Q12H IVPB Last administered on 00:10; Admin Dose 125 MLS/HR; Start 01/12/17 at 13:00 Pantoprazole (Protonix Tab) 40 mg DAILY@06 PO ; Start 01/13/17 at 06:00 Alprazolam (Xanax) 0.5 mg HS PRN PO ANXIETY Last administered on 01/14/17 23: 10; Admin Dose 0.5 MG; Start 01/12/17 at 18:00 Oxycodone HCl (Roxicodone) 60 mg ,13 PO Last administered on 01/14/17 13:48 ; Admin Dose 60 MG; Start 01/13/17 at 09:00 Methadone HCl (Methadone) 20 mg BID@,23 PO Last administered on 01/14/17 07: 23; Admin Dose 20 MG; Start 01/12/17 at 23:00 Oxycodone HCl (Roxicodone) 90 mg DAILY@18 PO Last administered on 01/14/17 17: 29; Admin Dose 90 MG; Start 01/13/17 at 18:30 Collagenase (Santyl) 1 applic DAILY TOP Last administered on 01/14/17 17:28; Admin Dose 1 APPLIC; Start 01/14/17 at 16:00 SKYLER TATE DPM Jan 15, 2017:18
[2017-01-15 02:44] VITALS: BP 109/60; RESP 18
[2017-01-15] MEDS: PIPER-TAZO 3.375 GM IV (PMX) 100 ML IVPB SCH ×4 (05:56→23:08)
[2017-01-15] MEDS: PANTOPRAZOLE (EC) 40 MG TAB PO SCH (06:00)
[2017-01-15] MEDS: METHADONE 10 MG TAB PO SCH ×2 (07:07→23:08)
[2017-01-15 07:56] VITALS: BP 122/70; RESP 20
[2017-01-15] MEDS: PREGABALIN 25 MG CAP PO SCH (09:22)
[2017-01-15] MEDS: oxyCODONE 15 MG TAB PO SCH ×3 (09:23→18:33)
[2017-01-15] MEDS: ENOXAPARIN 40 MG/0.4 ML SYG SC SCH (09:34)
[2017-01-15 15:27] VITALS: BP 130/78; RESP 20
[2017-01-15] MEDS: COLLAGENASE 30 GM TUBE TOP SCH (15:45)
--- NOTE | 2017-01-15 17:21 | CONS ---
RUPALI VIEYRA MANAGER EMS 01/15/17 1720: Date/Time of Note Date/Time of Note DATE: 01/15/17 TIME: 17:20 Assessment/Plan Assessment/Plan Chief Complaint/Hosp Course assessment/impression: - infection of ulcer of L lateral malleolus with surrounding cellulitis - improving - paraplegia after an injury in a fall - s/p back surgery - obesity recommendations: - await the final results of wound culture from L ankle (preliminary no growth after 2 days) - continue IV vanc and pip/tazo-->then convert to PO antibiotics based on the final culture result management d/w Pt, Deloris NGUYỄN, and Dr. Barboza Problems: Consultation Date/Type/Reason Admit Date/Time Jan 11, 2017 at 23:54 Initial Consult Date 01/14/17 Type of Consultation: Infectious Disease 24 HR Interval Summary Free Text/Dictation Anxious to go home. No acute issues. Exam/Review of Systems Vital Signs Vitals Vital Signs Date Time Temp Pulse Resp B/P Pulse Ox O2 Delivery O2 Flow Rate FiO2 01/15/17 15:27 97.4 59 20 130/78 97 01/12/17 00:17 Room Air Intake and Output 01/14/17 01/14/17 01/15/17 15:00 23:00 07:00 Intake Total 350 ml 980 ml 730 ml Balance 350 ml 980 ml 730 ml Exam Constitutional: alert, oriented, well developed Psych: no complaints Head: atraumatic, normocephalic Neck: supple Respiratory: clear to auscultation, normal air movement Cardiovascular: nl pulses, regular rate and rhythm Gastrointestinal: non-tender, soft Extremities: edema (bilateral pedal) Neurological: nl speech, other (paraplegic) Skin: rash or lesions (L lateral malleolus wound with trace erythema- improved compared to initial pictures on admit; right toes with small ulcers) Results Result Diagram: 01/14/17 0500 01/14/17 0445 Medications Medications Current Medications Piperacillin Sod/ Tazobactam Sod (Zosyn 3.375gm/ 100 ml (Pmx)) 100 ml @ 200 mls /hr Q6 IVPB Last administered on 01/15/17t 12:48; Admin Dose 200 MLS/HR; Start 01/12/17 at 06:00 Acetaminophen (Tylenol Tab) 650 mg Q6H PRN PO PAIN AND OR ELEVATED TEMP; Start 01/12/17 at 01:00 Enoxaparin Sodium (Lovenox) 40 mg DAILY SC Last administered on 01/15/17 09:34 ; Admin Dose 40 MG; Start 01/12/17 at 09:00 Zolpidem Tartrate (Ambien) 5 mg HS PRN PO INSOMNIA; Start 01/12/17 at 01:00 Pregabalin (Lyrica) 100 mg DAILY PO Last administered on 01/15/17 09:22; Admin Dose 100 MG; Start 01/12/17 at 09:00 Morphine Sulfate 4 mg 4 mg Q2H PRN IV pain Last administered on 01/12/17 02:49 ; Admin Dose 4 MG; Start 01/12/17 at 03:00 Vancomycin HCl (Vancocin) 250 ml @ 125 mls/hr Q12H IVPB Last administered on 13:48; Admin Dose 125 MLS/HR; Start 01/12/17 at 13:00 Pantoprazole (Protonix Tab) 40 mg DAILY@06 PO ; Start 01/13/17 at 06:00 Alprazolam (Xanax) 0.5 mg HS PRN PO ANXIETY Last administered on 01/14/17 23: 10; Admin Dose 0.5 MG; Start 01/12/17 at 18:00 Oxycodone HCl (Roxicodone) 60 mg 09,13 PO Last administered on 01/15/17 12:48 ; Admin Dose 60 MG; Start 01/13/17 at 09:00 Methadone HCl (Methadone) 20 mg BID@,23 PO Last administered on 01/15/17 07: 07; Admin Dose 20 MG; Start 01/12/17 at 23:00 Oxycodone HCl (Roxicodone) 90 mg DAILY@18 PO Last administered on 01/14/17 17: 29; Admin Dose 90 MG; Start 01/13/17 at 18:30 Collagenase (Santyl) 1 applic DAILY TOP Last administered on 01/15/17 15:45; Admin Dose 1 APPLIC; Start 01/14/17 at 16:00 Miscellaneous Information (*Rx Drug Level Order Reminder*) 1 ONCE ONCE XX ; Start 01/16/17 at 12:00; Stop 7/19/17 at 12:01 YARELI BARBOZA M.D. 01/16/17 1217: Assessment/Plan Assessment/Plan Additional Assessment/Plan Tamra attestation: I discussed the management with LINCOLN Vieyra and agree with above Exam/Review of Systems Results Result Diagram: 01/14/17 0500 01/14/17 0445 RUPALI VIEYRA NP Jan 15, 2017 17:20 YARELI BARBOZA M.D. Jan 16, 2017 12:17
--- NOTE | 2017-01-15 18:37 | PN ---
Date/Time of Note Date/Time of Note DATE: 01/15/17 TIME: 18:35 Assessment/Plan VTE Prophylaxis VTE Prophylaxis Intervention: SCD's Lines/Catheters IV Catheter Type (from [facility]): [facility] Urinary Cath still in place: No Assessment/Plan Chief Complaint/Hosp Course Patient remains hemodynamically stable, pain is well controlled, patient wants to go home, explained the need to await for final ID recommendations prior to discharge. Assessment/Plan -Left lower extremity ulcer with possible cellulitis, Dr. Shelton is following an infection disease consultation. Dr. Lazar is following in podiatry consultation. -Bilateral lower extremity atherosclerosis, Dr. Garcia is following in vascular surgery consultation. -Paraplegia secondary to spinal cord injury -Morbid obesity with BMI of 33.4 Further recommendations based on clinical course. Plan of care discussed with Dr. Donaldson. Problems: Exam/Review of Systems Vital Signs Vitals Vital Signs Date Time Temp Pulse Resp B/P Pulse Ox O2 Delivery O2 Flow Rate FiO2 01/15/17 15:27 97.4 59 20 130/78 97 01/12/17 00:17 Room Air Intake and Output 01/14/17 01/14/17 01/15/17 15:00 23:00 07:00 Intake Total 350 ml 980 ml 730 ml Balance 350 ml 980 ml 730 ml Exam Constitutional: alert, oriented Psych: no complaints Neck: supple Respiratory: normal air movement Cardiovascular: nl pulses Gastrointestinal: non-tender, soft Musculoskeletal: muscle weakness Extremities: other (Left lower extremity ulcer) Neurological: other (Paraplegia) Results Result Diagram: 01/14/17 0500 01/14/17 0445 Medications Medications Current Medications Piperacillin Sod/ Tazobactam Sod (Zosyn 3.375gm/ 100 ml (Pmx)) 100 ml @ 200 mls /hr Q6 IVPB Last administered on 01/15/17 18:03; Admin Dose 200 MLS/HR; Start 01/12/17 at 06:00 Acetaminophen (Tylenol Tab) 650 mg Q6H PRN PO PAIN AND OR ELEVATED TEMP; Start 01/12/17 at 01:00 Enoxaparin Sodium (Lovenox) 40 mg DAILY SC Last administered on 01/15/17 09:34 ; Admin Dose 40 MG; Start 01/12/17 at 09:00 Zolpidem Tartrate (Ambien) 5 mg HS PRN PO INSOMNIA; Start 01/12/17 at 01:00 Pregabalin (Lyrica) 100 mg DAILY PO Last administered on 01/15/17 09:22; Admin Dose 100 MG; Start 01/12/17 at 09:00 Morphine Sulfate 4 mg 4 mg Q2H PRN IV pain Last administered on 01/12/17 02:49 ; Admin Dose 4 MG; Start 01/12/17 at 03:00 Vancomycin HCl (Vancocin) 250 ml @ 125 mls/hr Q12H IVPB Last administered on 13:48; Admin Dose 125 MLS/HR; Start 01/12/17 at 13:00 Pantoprazole (Protonix Tab) 40 mg DAILY@06 PO ; Start 01/13/17 at 06:00 Alprazolam (Xanax) 0.5 mg HS PRN PO ANXIETY Last administered on 01/14/17 23: 10; Admin Dose 0.5 MG; Start 01/12/17 at 18:00 Oxycodone HCl (Roxicodone) 60 mg 09,13 PO Last administered on 01/15/17 12:48 ; Admin Dose 60 MG; Start 01/13/17 at 09:00 Methadone HCl (Methadone) 20 mg BID@07,23 PO Last administered on 01/15/17 07: 07; Admin Dose 20 MG; Start 01/12/17 at 23:00 Oxycodone HCl (Roxicodone) 90 mg DAILY@18 PO Last administered on 01/15/17 18: 33; Admin Dose 90 MG; Start 01/13/17 at 18:30 Collagenase (Santyl) 1 applic DAILY TOP Last administered on 01/15/17 15:45; Admin Dose 1 APPLIC; Start 01/14/17 at 16:00 Miscellaneous Information (*Rx Drug Level Order Reminder*) 1 ONCE ONCE XX ; Start 01/16/17 at 12:00; Stop 01/16/17 at 12:01 TING BENITEZ Jan 15, 2017 18:37
[2017-01-15 20:08] VITALS: BP 133/84; RESP 18
[2017-01-16] MEDS: VANCOMYCIN 1 GM in NS 250 ML IVPB SCH (00:46)
[2017-01-16] MEDS: ALPRAZOLAM 0.25 MG TAB PO PRN (00:50)
[2017-01-16 02:29] VITALS: BP 122/60; RESP 18
[2017-01-16] MEDS: PANTOPRAZOLE (EC) 40 MG TAB PO SCH (06:00)
[2017-01-16] MEDS: METHADONE 10 MG TAB PO SCH (06:42)
[2017-01-16] MEDS: PIPER-TAZO 3.375 GM IV (PMX) 100 ML IVPB SCH (06:42)
[2017-01-16] MEDS: COLLAGENASE 30 GM TUBE TOP SCH (09:00)
[2017-01-16] MEDS: PREGABALIN 25 MG CAP PO SCH (09:49)
[2017-01-16] MEDS: oxyCODONE 15 MG TAB PO SCH ×2 (09:49→13:36)
[2017-01-16] MEDS: ENOXAPARIN 40 MG/0.4 ML SYG SC SCH (09:56)
[2017-01-16 10:38] VITALS: BP 140/84; RESP 19
--- NOTE | 2017-01-16 12:11 | CONS ---
Date/Time of Note Date/Time of Note DATE: 01/16/17 TIME: 12:06 Assessment/Plan Assessment/Plan Chief Complaint/Hosp Course assessment/impression - infection of ulcer of L lateral malleolus and surrounding cellulitis - paraplegia after an injury in a fall - s/p back surgery - obesity recommendations - change IV vanc and pip/tazo to PO cephalexin (ordered); I suggest 3-5 more days management d/w Pt Problems: Consultation Date/Type/Reason Admit Date/Time Jan 11, 2017 at 23:54 Initial Consult Date 01/12/17 Type of Consultation: ID 24 HR Interval Summary Constitutional: no complaints Detailed Summary Eyes: no complaints ENT: no complaints Respiratory: no complaints Cardiovascular: no complaints Gastrointestinal: no complaints Genitourinary: no complaints Musculoskeletal: restricted range of motion (paraplegic) Skin: skin lesions (improved (L ankle)) Neurologic: other (paraplegic (no sensation below waist)) Exam/Review of Systems Vital Signs Vitals Vital Signs Date Time Temp Pulse Resp B/P Pulse Ox O2 Delivery O2 Flow Rate FiO2 01/16/17 10:38 98.4 81 19 140/84 99 Intake and Output 01/15/17 01/15/17 01/16/17 15:00 23:00 07:00 Intake Total 1670 ml 850 ml Output Total 0 ml Balance 1670 ml 850 ml Exam Constitutional: alert, oriented, well developed Psych: nl mood/affect, no complaints Head: atraumatic, normocephalic Eyes: nl conjunctiva, nl lids ENMT: nl external ears & nose Extremities: No edema Neurological: other (paraplegic) Skin: other (L ankle is dressed) Results Result Diagram: 01/14/17 0500 01/14/17 0445 Medications Medications Current Medications Piperacillin Sod/ Tazobactam Sod (Zosyn 3.375gm/ 100 ml (Pmx)) 100 ml @ 200 mls /hr Q6 IVPB Last administered on 01/16/17 06:42; Admin Dose 200 MLS/HR; Start 01/12/17 at 06:00 Acetaminophen (Tylenol Tab) 650 mg Q6H PRN PO PAIN AND OR ELEVATED TEMP; Start 01/12/17 at 01:00 Enoxaparin Sodium (Lovenox) 40 mg DAILY SC Last administered on 01/16/17 09:56 ; Admin Dose 40 MG; Start 01/12/17 at 09:00 Zolpidem Tartrate (Ambien) 5 mg HS PRN PO INSOMNIA; Start 01/12/17 at 01:00 Pregabalin (Lyrica) 100 mg DAILY PO Last administered on 01/16/17 09:49; Admin Dose 100 MG; Start 01/12/17 at 09:00 Morphine Sulfate 4 mg 4 mg Q2H PRN IV pain Last administered on 01/12/17 02:49 ; Admin Dose 4 MG; Start 01/12/17 at 03:00 Vancomycin HCl (Vancocin) 250 ml @ 125 mls/hr Q12H IVPB Last administered on 00:46; Admin Dose 125 MLS/HR; Start 01/12/17 at 13:00 Pantoprazole (Protonix Tab) 40 mg DAILY@06 PO ; Start 01/13/17 at 06:00 Alprazolam (Xanax) 0.5 mg HS PRN PO ANXIETY Last administered on 01/16/17 00: 50; Admin Dose 0.25 MG; Start 01/12/17 at 18:00 Oxycodone HCl (Roxicodone) 60 mg 09,13 PO Last administered on 01/16/17 09:49 ; Admin Dose 60 MG; Start 01/13/17 at 09:00 Methadone HCl (Methadone) 20 mg BID@07,23 PO Last administered on 01/15/17 23: 08; Admin Dose 20 MG; Start 01/12/17 at 23:00 Oxycodone HCl (Roxicodone) 90 mg DAILY@18 PO Last administered on 01/15/17 18: 33; Admin Dose 90 MG; Start 01/13/17 at 18:30 Collagenase (Santyl) 1 applic DAILY TOP Last administered on 01/15/17 15:45; Admin Dose 1 APPLIC; Start 01/14/17 at 16:00 YARELI PLASCENCIA M.D. Jan 16, 2017 12:10
[2017-01-16 12:16] LABS: ADD SCAN DIFF NO
[2017-01-16 12:19] LABS: BASOPHILS % 0.5 % (0.0-2.0); EOSINOPHILS # 0.1 10^3/ul (0.0-0.5); EOSINOPHILS % 1.9 % (0.0-7.0); HEMATOCRIT 38.4 % (37.0-47.0); HEMOGLOBIN 12.8 g/dl (12.0-16.0); LYMPHOCYTES # 2.3 10^3/ul (0.8-2.9); LYMPHOCYTES % 39.9 % (15.0-51.0); MEAN CORPUSCULAR HEMOGLOBIN 28.8 pg (29.0-33.0); MEAN CORPUSCULAR HGB CONC 33.3 g/dl (32.0-37.0); MEAN CORPUSCULAR VOLUME 86.3 fl (82.0-101.0); MONOCYTE # 0.3 10^3/ul (0.3-0.9); MONOCYTES % 4.3 % (0.0-11.0); NEUTROPHIL # 3.1 10^3/ul (1.6-7.5); NEUTROPHILS % 53.2 % (39.0-77.0); PLATELET COUNT 225 10^3/UL (140-415); RED BLOOD COUNT 4.45 10^6/ul (4.20-5.40); RED CELL DISTRIBUTION WIDTH 12.7 % (11.5-14.5); WHITE BLOOD COUNT 5.8 10^3/ul (4.8-10.8)
[2017-01-16 12:36] LABS: CALCIUM 9.8 mg/dl (8.4-10.2); CREATININE 0.61 mg/dl (0.44-1.00); POTASSIUM 4.4 mmol/L (3.5-5.1)
[2017-01-16] MEDS ORDERED: CEPHALEXIN 500 MG CAP PO SCH (14:00)
[2017-01-16 14:11] VITALS: BP 130/82; RESP 18
[2017-01-16] MEDS ORDERED: CEPH500C PO (16:19)
--- NOTE | 2017-01-16 19:07 | DS ---
Date/Time of Note Date/Time of Note DATE: 01/16/17 TIME: 19:05 Discharge Summary Admission/Discharge Info Admit Date/Time Jan 11, 2017 at 23:54 Discharge Date/Time Jan 16, 2017 at 17:55 Patient Condition: Good Hx of Present Illness The patient Amarilis Durán is a 56-year-old female patient with past medical history of paraplegia,, status post back surgery, decub debridement, status post breast implant is admitted to [facility] patient was seen in [facility] but was transferred to [facility] for insurance issues. Patient was admitted with fever and chills patient reported having an area of erythema and blister on her lateral area of left ankle. Patient also stated that she has a same problem in the past as well. No other complaints were mentioned. During assessment patient is alert and awake, follows commands denies any chest pain, shortness of breath, fever, chills,. Headache, palpitations, focal weakness and numbness, abdominal pain, nausea vomiting. Patient denies any fall or injury. Review of systems-all systems are reviewed and abnormalities mentioned as above. Patient is admitted under Dr. Donaldson on Med[facility] floor. Vanco, Zosyn and IV fluids were given in the ER Home medications #1 oxycodone HCL 60 mg p.o. 4 times daily #2 methadone HCL 10 mg p.o. 4 times daily #3 pregabalin 100 mg p.o. daily Allergies-no known drug allergies Hospital Course -Left lower extremity ulcer with possible cellulitis, Dr. Shelton is following an infection disease consultation. Dr. Lazar is following in podiatry consultation. Patient was giving vancomycin and Zosyn, discharged on Keflex for 5 more days. -Bilateral lower extremity atherosclerosis, Dr. Garcia is following in vascular surgery consultation. -Paraplegia secondary to spinal cord injury -Morbid obesity with BMI of 33.4 Home Meds Active Scripts Cephalexin* (Cephalexin*) 500 Mg Capsule, 500 MG PO Q8 for 5 Days, CAP Prov:TING BENITEZ 01/16/17 Reported Medications Pregabalin* (Lyrica*) 100 Mg Capsule, 100 MG PO DAILY, CAP 01/12/17 Oxycodone Hcl* (IR) (Oxycodone Hcl*) 30 Mg Tablet, 60 MG PO TID and hs, TAB 01/18/15 Methadone Hcl* (Methadone*) 10 Mg Tab, 40 MG PO BID, TAB 01/18/15 Follow-up Plan Follow-up with PMD in 2 weeks Primary Care Provider Not On Staff Doctor Time spent on discharge: > 30 minutes Pending Labs Laboratory Tests Test 01/16/17 12:10 White Blood Count 5.810^3/ul (4.8-10.8) Red Blood Count 4.4510^6/ul (4.20-5.40) Hemoglobin 12.8g/dl (12.0-16.0) Hematocrit 38.4% (37.0-47.0) Mean Corpuscular Volume 86.3fl (82.0-101.0) Mean Corpuscular Hemoglobin 28.8pg (29.0-33.0) Mean Corpuscular Hemoglobin Concent 33.3g/dl (32.0-37.0) Red Cell Distribution Width 12.7% (11.5-14.5) Platelet Count 38112^3/UL (140-415) Mean Platelet Volume 10.0fl (7.4-10.4) Neutrophils % 53.2% (39.0-77.0) Lymphocytes % 39.9% (15.0-51.0) Monocytes % 4.3% (0.0-11.0) Eosinophils % 1.9% (0.0-7.0) Basophils % 0.5% (0.0-2.0) Nucleated Red Blood Cells % 0.0/100WBC (0.0-0.0) Neutrophils # 3.110^3/ul (1.6-7.5) Lymphocytes # 2.310^3/ul (0.8-2.9) Monocytes # 0.310^3/ul (0.3-0.9) Eosinophils # 0.110^3/ul (0.0-0.5) Basophils # 0.010^3/ul (0.0-0.1) Nucleated Red Blood Cells # 0.010^3/ul (0.0-0.0) Sodium Level 143mmol/L (135-144) Potassium Level 4.4mmol/L (3.5-5.1) Chloride Level 98mmol/L (97-110) Carbon Dioxide Level 32mmol/L (21-31) Anion Gap 17 (8-16) Blood Urea Nitrogen 13mg/dl (7-20) Creatinine 0.61mg/dl (0.44-1.00) Glucose Level 99mg/dl (70-220) Calcium Level 9.8mg/dl (8.4-10.2) TING BENITEZ Jan 16, 2017 19:07
== END 2017-01-16 17:55 | disposition home or self-care (01) | DRG 593 ==
LOC: MS2 23:54
PROVIDERS: ADMIT Internal Medicine; ATTEND Internal Medicine
DX: L97.929 Non-pressure chronic ulcer of unspecified part of left lower leg with unspecified severity (principal); L03.116 Cellulitis of left lower limb; G82.20 Paraplegia, unspecified; E66.01 Morbid (severe) obesity due to excess calories; Z68.33 Body mass index [BMI] 33.0-33.9, adult; I70.203 Unspecified atherosclerosis of native arteries of extremities, bilateral legs
CPT/HCPCS: 80048; 80053; 80202; 85025; 86703; 87070; 93922; 93971; J1650; J2270; J2543; J3370; J7040

== ENCOUNTER 2017-07-17 18:11 | Emergency (ER) | END 2017-07-17 19:27 | disposition left against medical advice (07) ==